=== PATIENT | male | born 1975 | race Caucasian/White ===

== ENCOUNTER 2016-11-13 16:12 | Emergency (ER) | payer BC ==
[~2016-11-13] VITALS: Ht 191.8 cm; Wt 100.4 kg
[~2016-11-13 16:12] MED LIST: IBUP-1450 PO; OMEP40CA PO; SNG10 PO; THIA100T11 PO
[2016-11-13 16:15] VITALS: TEMP 36.6; Ht 191.8 cm; Wt 100.4 kg
[2016-11-13 17:18] LABS: BASO % 0.2 %; BASO ABS # 0.02 K/uL (0-0.2); COMPLETE YES; EOS % 0.6 %; HEMATOCRIT 47.4 % (42-52); IG% 0.2 %; LYMPH % 17.5 %; LYMPH ABS # 1.53 K/uL (1.2-3.4); MEAN CORPUSCULAR HEMOGLOBIN 32.4 pg (25-34); MEAN CORPUSCULAR HGB CONC 35.7 g/dl (32-36); MEAN PLATELET VOLUME 9.6 fL (7.4-10.4); NEUT % 71.5 %; PLATELET COUNT 206 K/uL (130-400); RED BLOOD COUNT 5.21 M/uL (4.7-6.1); WHITE BLOOD COUNT 8.73 K/uL (4.8-10.8)
[2016-11-13 17:38] LABS: BUN/CREATININE RATIO 18.3 (10-20); CALCIUM 9.8 mg/dl (8.5-10.1); CREATININE 0.88 mg/dl (0.60-1.40); POTASSIUM 3.9 mmol/L (3.5-5.1)
[2016-11-13 17:49] LABS: THYROID STIMULATING HORMONE 0.722 uIu/ml (0.300-4.500)
[2016-11-13 17:53] LABS: ACETAMINOPHEN < 2 ug/ml (10-30)
[2016-11-13 18:06] LABS: URINE APPEARANCE TURBID (CLEAR); URINE COLOR ORANGE; URINE NITRITE POS (NEG); URINE SPECIFIC GRAVITY 1.037 (1.000-1.030); UROBILINOGEN NEG (NEG)
[2016-11-13 18:19] LABS: MANUAL MICROSCOPIC REQUIRED? NO; REVIEW REQ? NO; URINE BILIRUBIN NEG (NEG)
[2016-11-13 18:34] LABS: BENZODIAZEPINE, URINE NEG (NEG); COCAINE,URINE NEG (NEG); PHENCYCLIDINE, URINE NEG (NEG)
--- NOTE | 2016-11-14 01:02 | EMERGENCY ROOM VISIT NOTE ---
History Report prepared by Tahmina: Beverly Sage Under the Supervision of: Dr. Eugene Dominique D.O. First contact with patient: 16:33 Chief Complaint: MENTAL HEALTH EVALUATION Stated Complaint: MENTAL HEALTH EVAL History of Present Illness The patient is a 41 year old male who presents to the Emergency Room with complaints of worsening depression starting over 2 years [employer]. The patient states that he has been abusing alcohol and drugs over the last couple years in order to cope with his depression. The patient states that his father July 14 2015. The patient states that he recently has lost his job, house , and his dog. The patient states that he has recently been been on an alcoholic binge and has been drinking a lot, but does not know exactly how much he drinks daily. He states that some days he does not drink or he will drink "every once in a blue barlow," or go on a drinking binge. The patient states that he also uses marijuana and methamphetamine use. The patient states that he used Methamphetamines this morning followed by smoking a joint. The patient states that he knows that he cannot kill himself but states that he went into the [place] the other day during a drinking binge and contemplated it but states he does not want to . The patient denies any homicidal or suicidal ideation or any visual or auditory hallucinations. The patient states that he wants help dealing with the of his father because he has never really dealt with it in the past. The patient states that he did vomit earlier today but is not sure if it was due to his drug use. The patient denies any headaches or diarrhea. Source of History: patient Onset: 2 years TPA Position: other (global) Timing: worsening Associated Symptoms: + vomiting, No diarrhea, No headache Note: Patient denies any suicidal ideation, homicidal ideation, auditory or visual hallucinations. Review of Systems See HPI for pertinent positives & negatives. A total of 10 systems reviewed and were otherwise negative. Past Medical & Surgical Medical Problems: (1) Pain, dental Family History No significant family history Social History Smoking Status: Current Every Day Smoker Marital Status: single Occupation Status: employed Current/Historical Medications No Active Prescriptions or Reported Meds Allergies Coded Allergies: Hydrocodone (Unverified Allergy, Unknown, RASH, 11/13/16) Bupropion (Unverified Adverse Reaction, Unknown, PYSCHOTIC, 11/13/16) Physical Exam Vital Signs Date Time Temp Pulse Resp B/P Pulse Ox O2 Delivery O2 Flow Rate FiO2 11/13/16 23:15 95 18 167/89 97 Room Air 11/13/16 18:30 88 20 142/79 96 Room Air 11/13/16 16:15 36.6 112 18 177/99 95 Room Air Physical Exam GENERAL: Sitting up in bed, disheveled, alert, well appearing, well nourished, no distress, non-toxic EYE EXAM: normal conjunctiva OROPHARYNX: no exudate, no erythema, lips, buccal mucosa, and tongue normal and mucous membranes are moist NECK: supple, no nuchal rigidity, no adenopathy, non-tender LUNGS: Clear to auscultation. Normal chest wall mechanics HEART: no murmurs, S1 normal and S2 normal ABDOMEN: abdomen soft, non-tender, normo-active bowel sounds, no masses, no rebound or guarding. BACK: Back is symmetrical on inspection and there is no deformity, no midline tenderness, no CVA tenderness. SKIN: no rashes and no bruising UPPER EXTREMITIES: upper extremities are grossly normal. LOWER EXTREMITIES: No pitting edema. NEURO EXAM: Normal sensorium, cranial nerves II-XII intact, normal speech, no weakness of arms, no weakness of legs. PSYCH: denies suicidal, homicidal ideation. denies auditory and visual hallucinations. Admits to alcohol, methamphetamines and marijuana abuse. Medical Decision & Procedures Laboratory Results 11/13/16 17:10 Red Blood Count 5.21, Mean Corpuscular Volume 91.0, Mean Corpuscular Hemoglobin 32.4, Mean Corpuscular Hemoglobin Concent 35.7, Mean Platelet Volume 9.6, Neutrophils (%) (Auto) 71.5, Lymphocytes (%) (Auto) 17.5, Monocytes (%) (Auto) 10.0, Eosinophils (%) (Auto) 0.6, Basophils (%) (Auto) 0.2, Neutrophils # (Auto ) 6.24, Lymphocytes # (Auto) 1.53, Monocytes # (Auto) 0.87, Eosinophils # (Auto ) 0.05, Basophils # (Auto) 0.02 11/13/16 17:10 Test 11/13/16 16:55 11/13/16 17:00 11/13/16 17:10 Bedside Glucose 99 mg/dl (70-99) Urine Color ORANGE Urine Appearance TURBID (CLEAR) Urine pH 5.0 (4.5-7.5) Urine Specific [place] 1.037 (1.000-1.030) Urine Protein 2+ (NEG) Urine Glucose (UA) NEG (NEG) Urine Ketones 1+ (NEG) Urine Occult Blood NEG (NEG) Urine Nitrite POS (NEG) Urine Bilirubin NEG (NEG) Urine Urobilinogen NEG (NEG) Urine Leukocyte Esterase NEG (NEG) Urine WBC (Auto) 1-5 /hpf (0-5) Urine RBC (Auto) 0-4 /hpf (0-4) Urine Hyaline Casts (Auto) 5-10 /lpf (0-5) Urine Epithelial Cells (Auto) 5-10 /lpf (0-5) Urine Bacteria (Auto) NEG (NEG) Urine Opiates Screen NEG (NEG) Urine Methadone, Qualitative NEG (NEG) Urine Barbiturates NEG (NEG) Urine Phencyclidine (PCP) Level NEG (NEG) Ur Amphetamine/Methamphetamine POS (NEG) MDMA (Ecstasy) Screen POS (NEG) Urine Benzodiazepines Screen NEG (NEG) Urine Cocaine Metabolite NEG (NEG) Urine Marijuana (THC) POS (NEG) White Blood Count 8.73 K/uL (4.8-10.8) Red Blood Count 5.21 M/uL (4.7-6.1) Hemoglobin 16.9 g/dL (14.0-18.0) Hematocrit 47.4 % (42-52) Mean Corpuscular Volume 91.0 fL (80-100) Mean Corpuscular Hemoglobin 32.4 pg (25-34) Mean Corpuscular Hemoglobin Concent 35.7 g/dl (32-36) Platelet Count 206 K/uL (130-400) Mean Platelet Volume 9.6 fL (7.4-10.4) Neutrophils (%) (Auto) 71.5 % Lymphocytes (%) (Auto) 17.5 % Monocytes (%) (Auto) 10.0 % Eosinophils (%) (Auto) 0.6 % Basophils (%) (Auto) 0.2 % Neutrophils # (Auto) 6.24 K/uL (1.4-6.5) Lymphocytes # (Auto) 1.53 K/uL (1.2-3.4) Monocytes # (Auto) 0.87 K/uL (0.11-0.59) Eosinophils # (Auto) 0.05 K/uL (0-0.5) Basophils # (Auto) 0.02 K/uL (0-0.2) RDW Standard Deviation 43.4 fL (36.4-46.3) RDW Coefficient of Variation 13.1 % (11.5-14.5) Immature Granulocyte % (Auto) 0.2 % Immature Granulocyte # (Auto) 0.02 K/uL (0.00-0.02) Anion Gap 7.0 mmol/L (3-11) Est Creatinine Clear Calc Drug Dose 131.2 ml/min Estimated GFR () 121.9 Estimated GFR (Non- 105.2 BUN/Creatinine Ratio 18.3 (10-20) Calcium Level 9.8 mg/dl (8.5-10.1) Total Bilirubin 0.9 mg/dl (0.2-1) Direct Bilirubin 0.2 mg/dl (0-0.2) Aspartate Amino Transf (AST/SGOT) 33 U/L (15-37) Alanine Aminotransferase (ALT/SGPT) 49 U/L (12-78) Alkaline Phosphatase 75 U/L (45-117) Total Protein 9.0 gm/dl (6.4-8.2) Albumin 4.8 gm/dl (3.4-5.0) Thyroid Stimulating Hormone (TSH) 0.722 uIu/ml (0.300-4.500) Salicylates Level 2.7 mg/dl (2.8-20) Acetaminophen Level < 2 ug/ml (10-30) Ethyl Alcohol mg/dL < 3.0 mg/dl (0-3) Laboratory results per my review. ED Course ED COURSE: Vital signs were reviewed and showed normal The patients medical record was reviewed The above diagnostic studies were performed and reviewed. ED treatments and interventions as stated above. 1637: The patient was evaluated in room A5. A complete history and physical examination was performed. 2134: I reevaluated the patient and he was resting comfortably. He initially was refusing all dual diagnose inpatient care but he now is agreeable because he has not been admitted to [facility]. 2322: According to the casework specialist the patient has been accepted at [facility] for further inpatient psychiatric care and will be transferred for further treatment. 0041: Upon reevaluation, the patient is resting comfortably and sleeping waiting for transport to [facility] at 0115. 0115: The patient will now be transfer to [facility] for further psychiatric care. Based on the patients age, coexisting illnesses, exam and lab findings the decision to treat as an inpatient was made.The patient remained stable while under my care.The patient appeared well at the time of discharge. Medical Decision Differential diagnosis: Etiologies such as mood disorder, infection, hypoglycemia, electrolyte abnormalities, cardiac sources, intracerebral event, toxicologic, neurologic, as well as others were entertained. Patient is a 41-year-old male that presents the ER for severe depression along with alcohol abuse and methamphetamine abuse. He notes that he has nothing left to live for but denies any suicidal or homicidal ideations currently. He has been extremely depressed and has lost his job and is losing his house. He has been unable to care for himself. CBC along with BMP, LFTs, bilirubin, lipase and TSH were normal. Salicylates and acetaminophen were negative along with alcohol. Recommended to low treatment facilities the patient preferred to try to go to a primary psychiatric place. He was eventually accepted to [facility] and will be transported at 1:15. Patient rested comfortably in the ER until transport. Impression Primary Impression: Mood disorder Additional Impressions: Drug abuse Alcohol abuse Depression Scribe Attestation The scribe's documentation has been prepared under my direction and personally reviewed by me in its entirety. I confirm that the note above accurately reflects all work, treatment, procedures, and medical decision making performed by me. Departure Information Dispostion [facility] Acute Care ([facility]) Prescriptions No Active Prescriptions or Reported Meds Referrals No Doctor, Assigned (PCP) Patient Instructions My [facility] Problem Qualifiers
[2016-11-14 01:45] VITALS: BP 183/89; PULSE 70; O2SAT 100
== END 2016-11-14 01:45 | disposition short-term general hospital (02) ==
LOC: C.EDB 16:13 → C.EDA 11-14 01:45
DX: F32.9 Major depressive disorder, single episode, unspecified (principal); F39 Unspecified mood [affective] disorder; F10.10 Alcohol abuse, uncomplicated; F19.10 Other psychoactive substance abuse, uncomplicated; F17.200 Nicotine dependence, unspecified, uncomplicated; Z88.8 Allergy status to other drugs, medicaments and biological substances

== ENCOUNTER 2019-04-29 09:44 | Inpatient (IN) ==
--- OUTSIDE RECORDS SUMMARY | 2019-04-29 09:46 | External Medical Summary | Continuity of Care Document ---
:1975 Author Name Aurora Robert Address Unavailable Unavailable , Care Team Providers Name Role Phone Unavailable Unavailable Unavailable Froilan Robert Unavailable [email or web address] [email or web address], NO Unavailable Unavailable Emy Nevarez M.D. Unavailable [email or web address] Unavailable Unavailable Unavailable Problems Asthma (493.90) (J45.909) Obesity (278.00) (E66.9) Pre-syncope (780.2) (R55) Esophageal reflux (530.81) (K21.9) Psoriasis (696.1) (L40.9) Eczema (692.9) (L30.9) Plantar fasciitis (728.71) (M72.2) Alcohol dependence in remission (303.93) (F10.21) Hypercholesterolemia (272.0) (E78.00) Drug dependence, in remission (304.93) (F19.21) Pain, dental (525.9) (K08.89) Sleep apnea (780.57) (G47.30) Hypertension (401.9) (I10) Allergic rhinitis (477.9) (J30.9) Recurrent major depressive episodes, moderate (296.32) (F33. 1) Chronic lower back pain (724.2) (M54.5) Seeing A Dentist - Last Seen Acid reflux (530.81) (K21.9) Anxiety (300.00) (F41.9) Alcohol overdose (980.0) (T51.91XA) Lateral epicondylitis (726.32) (M77.10) Allergies and Adverse Reactions Vicodin TABS (Allergy) Reaction: Rash, H tanisha Wellbutrin TABS (Allergy) Reaction: Irri tability Medications Omeprazole 40 MG Oral Capsule Delayed Re lease; TAKE 1 CAPSULE BY MOUTH ONCE DAILY. Jakob Mcgovern Start: 13-Jul-2013 Quantity: 30 Refills: 1 Vitamin B-12 ER 1000 MCG Oral Tablet Ext ended Release; TAKE 1 TABLET DAILY DIRECTED. Jakob Mcgovern Start: 21-Dec-2016 Refills: 0 Thiamine HCl - 100 MG Oral Tablet; TAKE 1 TABLET DAILY. Jakob Ocampo Start: 21-Dec-2016 Refills: 0 hydrOXYzine Pamoate 50 MG Oral Capsule; take one every 6 hours prn Jakob Mcgovern Start: 21-Dec-2016 Quantity: 30 Refills: 0 QUEtiapine Fumarate ER 150 MG Oral Table t Extended Release 24 Hour; take one daily at bedtime, 10 p.m. Jakob Mcgovern Start: 21-Dec-2016 Quantity: 30 Refills: 0 FLUoxetine HCl - 20 MG Oral Capsule; take once daily a t 9 a.m. Jakob Mcgovern Start: 21-Dec-2016 Quantity: 30 Refills: 0 Gabapentin 300 MG Oral Capsule; take one TID at 8 a.m. , 2 p.m., and 8 p.m. Jakob Mcgovern Start: 21-Dec-2016 Quantity: 90 Refills: 0 Montelukast Sodium 10 MG Oral Tablet; TAKE 1 TABLET BY MOUTH ONCE DAILY. Jakob Mcgovern Start: 05-Dec-2012 Quantity: 30 Refills: 0 Procedures History of Abdominal Surgery Status: Com pleted Immunizations PPD On: Aug-2007 Tetanus On: Aug-2007 Influenza On: 2010 Influenza On: 08-Jul-2012 16:06 Lot #: [id number], [employer] Influenza On: 07-May-2014 14:50 Lot #: [id number], [employer] Family History Father Family history of Hypertension (V17.49) Status: Active Family history of Diabetes Mellitus (V18.0) Status: Active Family history of Pure Hypercholesterolemia Status: Active Family history of Reported Family History Of Heart Disease S tatus: Active Family history of Prostate Cancer (V16.42) Status: Active Family history of myocardial infarction (V17.3) (Z82.49) Sta tus: Active Brother Family history of Diabetes Mellitus (V18.0) Status: Active Family history of Pure Hypercholesterolemia Status: Active Family history of Unspecified Psychoactive Substance Abuse - Status: Active Continuous Social History - Smoking Status Former smoker Plan of Treatment Planned Observations Planned Goals not documented Results No Known Results Results not documented
[2019-04-29 10:16] LABS: Basophils # (auto) 0.02 K/uL (0-0.2); Basophils % (auto) 0.4 %; Eosinophils % (auto) 3.9 %; Hemoglobin 15.4 g/dL (14.0-18.0); Lymphocytes % (auto) 44.7 %; Mean Corpuscular Hemoglobin 32.2 pg (25-34); Mean Corpuscular Hgb Conc 36.7 g/dL (32-36); Mean Corpuscular Volume 87.7 fL (80-100); Mean Platelet Volume 9.7 fL (7.4-10.4); Monocytes # (auto) 0.38 K/uL (0.11-0.59); Monocytes % (auto) 7.4 %; Neutrophils # (auto) 2.24 K/uL (1.4-6.5); Neutrophils % (auto) 43.6 %; Platelet Count 212 K/uL (130-400); RDW Coefficient of Variation 12.4 % (11.5-14.5); RDW Standard Deviation 39.6 fL (36.4-46.3); Red Blood Count 4.79 M/uL (4.7-6.1); White Blood Count 5.14 K/uL (4.8-10.8)
[2019-04-29 10:33] LABS: BUN Creatinine Ratio 11.4 (10-20); Calcium 8.8 mg/dl (8.5-10.1); Creatinine Clr Calc Pharmacy 149.8 ml/min; Est GFR (African American) 120.8; Est GFR (Non-African American) 104.2; Potassium 3.7 mmol/L (3.5-5.1)
[2019-04-29 10:43] LABS: Albumin Globulin Ratio 1.1 (0.9-2); Bilirubin,Total 0.4 mg/dl (0.2-1); Globulin 3.5 gm/dl (2.5-4.0); Thyroid Stimulating Hormone 0.925 uIu/ml (0.300-4.500); Total Protein 7.5 gm/dl (6.4-8.2)
[2019-04-29 10:45] LABS: Acetaminophen < 2 ug/ml (10-30)
[2019-04-29 10:46] LABS: Salicylate 3.5 mg/dl (2.8-20)
[2019-04-29] MEDS: NICOTINE 14 MG/24 HR PATCH TD SCH (10:49)
[2019-04-29 10:59] LABS: Appearance Urine Clear (Clear); Bilirubin Urine Negative (Negative); Blood Urine Negative (Negative); Color Urine Dark Yellow; Glucose Urine UA Negative (Negative); Ketones Urine Negative (Negative); Leukocyte Esterase Urine Negative (Negative); Nitrite Urine Negative (Negative); Protein Urine Negative (Negative); Specific Gravity Urine 1.021 (1.000-1.030); Urobilinogen Urine Negative (Negative)
[2019-04-29 11:33] LABS: Amphetamines+Metham, Urine Neg (Neg); Barbiturates, Urine Neg (Neg); Benzodiazepine, Urine Neg (Neg); Cocaine, Urine Neg (Neg); MDMA (Ecstacy), Urine Pos (Neg); Methadone, Urine Neg (Neg); Opiate, Urine Neg (Neg); Phencyclidine, Urine Neg (Neg)
--- NOTE | 2019-04-29 12:28 | Emergency Department Note ---
Entered by Danna Tse acting as a scribe for History of Present Illness General Chief complaint: Mental Health Evaluation Stated complaint: MENTAL HEALTH Source: patient History of Present Illness Onset (ago): day(s) (the past couple of days) Location: head, upper extremity and lower extremity Pain Consistency: + other (worsening) Maximum Pain Intensity: 4 Quality: + other (mental health evaluation) Associated symptoms: + other (Positive SI (with plan to jump off bridge). Negative HI) The patient is a 43 year old male who presents to the ED for a mental health evaluation. He states he is severely depressed and is "tired of his life." He notes he has a hx of depression and takes trazodone and other medications he has forgotten because he "has not taken them in a while." Pt states he has been thinking about jumping off a bridge over the past couple of days because he does not know if "it is worth it or not" and these thoughts have become more frequent. The patient reports he has had multiple suicidal attempts in the past. He denies any HI. Pt smoked marijuana and last weekend, he did cocaine and meth. Home Medications Home Medications Medication Instructions Recorded Confirmed Type benztropine 0.5 mg PO BID 04/29/19 04/29/19 History divalproex 750 mg PO BID 04/29/19 04/29/19 History folic acid 1 mg PO DAILY 04/29/19 04/29/19 History meloxicam 7.5 mg PO BID 04/29/19 04/29/19 History omeprazole magnesium [Prilosec OTC] 20 mg PO DAILY 04/29/19 04/29/19 History thiamine HCl (vitamin B1) [Vitamin 625 mg PO DAILY 04/29/19 04/29/19 History B-1] trazodone 150 mg PO HS 04/29/19 04/29/19 History Allergies Allergy/AdvReac Type Severity Reaction Status Date / Time No Known Allergies Allergy Unverified 09/19/18 20:12 Past Med/Surg History Medical History Anxiety (Chronic) PTSD (post-traumatic stress disorder) (Chronic) Major depression (Chronic) Mood disorder (Chronic) Family history non-contributory Surgical History No pertinent past surgical history Family History Other Family history non-contributory Social History Preferred Language: Maori Feels Safe at Home: Yes Smoking Status: Current every day smoker Tobacco Type: cigarettes ; Review of Systems See HPI for pertinent positives & negatives. and A total of 10 systems reviewed and were otherwise negative Physical Exam Vital Signs Vital Signs - 24 hr 04/29/19 09:48 04/29/19 12:19 Temperature 36.6 C Temperature Source Oral Sepsis Recent Fever Within 48 Hours No Sepsis Action Taken by Nursing No Action Required Pulse Rate 88 Pulse Rate [Left Finger] 100 H Respiratory Rate 20 20 Respiratory Effort / Characteristics Non-Labored Spontaneous Non-Labored Spontaneous Respiratory Depth Normal Normal Blood Pressure 143/92 H Blood Pressure [Left Arm] 113/70 Blood Pressure Mean 109 Blood Pressure Mean [Left Arm] 84 Pulse Oximetry 97 96 Oxygen Delivery Method Room Air Room Air GENERAL: Sitting up in bed, wearing hospital blue scrubs. Disheveled, non-toxic EYE EXAM: normal conjunctiva, PERRL and EOM's grossly intact OROPHARYNX: no exudate, no erythema, lips, buccal mucosa, and tongue normal and mucous membranes are moist NECK: supple, no nuchal rigidity, no adenopathy, non-tender LUNGS: Clear to auscultation. Normal chest wall mechanics HEART: no murmurs, S1 normal and S2 normal ABDOMEN: abdomen soft, non-tender, normo-active bowel sounds, no masses, no rebound or guarding. BACK: Back is symmetrical on inspection and there is no deformity, no midline tenderness, no CVA tenderness. SKIN: no rashes and no bruising UPPER EXTREMITIES: upper extremities are grossly normal. LOWER EXTREMITIES: No pitting edema. NEURO EXAM: Normal sensorium, cranial nerves II-XII grossly intact, normal speech, no gross weakness of arms, no gross weakness of legs. PSYCH: Admits to with plan to jump off bridge. Denies HI, AH, and VH. Course ED COURSE: Vital signs were reviewed and showed hypertensive The patients medical record was reviewed The above diagnostic studies were performed and reviewed. ED treatments and interventions as stated above. 0956: The patient was evaluated in room A5. A complete history and physical examination was performed. 1330: Discussed the patient's case with [facility]. The patient will be evaluated for further management. 1335: Upon reevaluation, the patient is feeling slightly better. I discussed my findings with the patient and he understands and agrees with the treatment plan. Based on the patients age, coexisting illnesses, exam and lab findings the decision to treat as an inpatient was made. The patient remained stable while under my care. The patient will be evaluated for further management. Administered Medications Nicotine (Nicoderm Cq) 14 mg TD QAM KIMBERLEE Stop: 05/29/19 10:44 Last Admin: 04/29/19 10:49 Dose: 14 mg Documented by: [id number] Medical Decision Making Differential Diagnosis Differential diagnosis: Etiologies such as mood disorder, infection, hypoglycemia, electrolyte abnormalities, cardiac sources, intracerebral event, toxicologic, neurologic, as well as others were entertained. Medical Records Attestation: I reviewed the patient's medical records. Home Medications Current Medication List: was personally reviewed by me Laboratory Data Attestation: I reviewed the patient's lab results. Result diagrams: 04/29/19 09:58 04/29/19 09:58 Lab Results 04/29/19 04/29/19 04/29/19 Range/Units 09:58 09:58 09:58 WBC 5.14 (4.8-10.8) K/uL RBC 4.79 (4.7-6.1) M/uL Hgb 15.4 (14.0-18.0) g/dL Hct 42.0 (42-52) % MCV 87.7 (80-100) fL MCH 32.2 (25-34) pg MCHC 36.7 H (32-36) g/dL RDW Std Deviation 39.6 (36.4-46.3) fL RDW Coeff of Raysa 12.4 (11.5-14.5) % Plt Count 212 (130-400) K/uL MPV 9.7 (7.4-10.4) fL Immature Gran % (Auto) 0.0 % Neut % (Auto) 43.6 % Lymph % (Auto) 44.7 % [place] % (Auto) 7.4 % Eos % (Auto) 3.9 % Baso % (Auto) 0.4 % Immature Gran # (Auto) 0.00 (0.00-0.02) K/uL Neut # (Auto) 2.24 (1.4-6.5) K/uL Lymph # (Auto) 2.30 (1.2-3.4) K/uL [place] # (Auto) 0.38 (0.11-0.59) K/uL Eos # (Auto) 0.20 (0-0.5) K/uL Baso # (Auto) 0.02 (0-0.2) K/uL Sodium 136 (136-145) mmol/L Potassium 3.7 (3.5-5.1) mmol/L Chloride 105 (98-107) mmol/L Carbon Dioxide 27 (21-32) mmol/L Anion Gap 4.0 (3-11) BUN 10 (7-18) mg/dl Creatinine 0.87 (0.6-1.4) mg/dl Est Cr Clr Drug Dosing 149.8 ml/min Est GFR ( Amer) 120.8 Est GFR (Non-Af Amer) 104.2 BUN/Creatinine Ratio 11.4 (10-20) Glucose 101 H (70-99) mg/dl Calcium 8.8 (8.5-10.1) mg/dl Total Bilirubin 0.4 (0.2-1) mg/dl AST 29 (15-37) U/L ALT 49 (12-78) U/L Alkaline Phosphatase 55 (45-117) U/L Total Protein 7.5 (6.4-8.2) gm/dl Albumin 4.0 (3.4-5.0) gm/dl Globulin 3.5 (2.5-4.0) gm/dl Albumin/Globulin Ratio 1.1 (0.9-2) TSH 0.925 (0.300-4.500) uIu/ml Urine Color Urine Appearance (Clear) Urine pH (4.5-7.5) Ur Specific [place] (1.000-1.030) Urine Protein (Negative) Urine Glucose (UA) (Negative) Urine Ketones (Negative) Urine Blood (Negative) Urine Nitrite (Negative) Urine Bilirubin (Negative) Urine Urobilinogen (Negative) Ur Leukocyte Esterase (Negative) Nasal Screen MRSA (PCR) (Negative) Salicylates 3.5 (2.8-20) mg/dl Urine Opiates Screen (Neg) Ur Methadone, Qual (Neg) Acetaminophen < 2 L (10-30) ug/ml Urine Barbiturates (Neg) Ur Phencyclidine (PCP) (Neg) U Amphetamin/Meth Scrn (Neg) MDMA (Ecstasy) Screen (Neg) U Benzodiazepines Scrn (Neg) Ur Cocaine Metabolite (Neg) U Marijuana (THC) Screen (Neg) Ethyl Alcohol mg/dL (0-3) mg/dl 04/29/19 04/29/19 04/29/19 Range/Units 09:58 10:37 10:37 WBC (4.8-10.8) K/uL RBC (4.7-6.1) M/uL Hgb (14.0-18.0) g/dL Hct (42-52) % MCV (80-100) fL MCH (25-34) pg MCHC (32-36) g/dL RDW Std Deviation (36.4-46.3) fL RDW Coeff of Raysa (11.5-14.5) % Plt Count (130-400) K/uL MPV (7.4-10.4) fL Immature Gran % (Auto) % Neut % (Auto) % Lymph % (Auto) % [place] % (Auto) % Eos % (Auto) % Baso % (Auto) % Immature Gran # (Auto) (0.00-0.02) K/uL Neut # (Auto) (1.4-6.5) K/uL Lymph # (Auto) (1.2-3.4) K/uL [place] # (Auto) (0.11-0.59) K/uL Eos # (Auto) (0-0.5) K/uL Baso # (Auto) (0-0.2) K/uL Sodium (136-145) mmol/L Potassium (3.5-5.1) mmol/L Chloride (98-107) mmol/L Carbon Dioxide (21-32) mmol/L Anion Gap (3-11) BUN (7-18) mg/dl Creatinine (0.6-1.4) mg/dl Est Cr Clr Drug Dosing ml/min Est GFR ( Amer) Est GFR (Non-Af Amer) BUN/Creatinine Ratio (10-20) Glucose (70-99) mg/dl Calcium (8.5-10.1) mg/dl Total Bilirubin (0.2-1) mg/dl AST (15-37) U/L ALT (12-78) U/L Alkaline Phosphatase (45-117) U/L Total Protein (6.4-8.2) gm/dl Albumin (3.4-5.0) gm/dl Globulin (2.5-4.0) gm/dl Albumin/Globulin Ratio (0.9-2) TSH (0.300-4.500) uIu/ml Urine Color Dark Yellow Urine Appearance Clear (Clear) Urine pH 8.0 H (4.5-7.5) Ur Specific [place] 1.021 (1.000-1.030) Urine Protein Negative (Negative) Urine Glucose (UA) Negative (Negative) Urine Ketones Negative (Negative) Urine Blood Negative (Negative) Urine Nitrite Negative (Negative) Urine Bilirubin Negative (Negative) Urine Urobilinogen Negative (Negative) Ur Leukocyte Esterase Negative (Negative) Nasal Screen MRSA (PCR) (Negative) Salicylates (2.8-20) mg/dl Urine Opiates Screen Neg (Neg) Ur Methadone, Qual Neg (Neg) Acetaminophen (10-30) ug/ml Urine Barbiturates Neg (Neg) Ur Phencyclidine (PCP) Neg (Neg) U Amphetamin/Meth Scrn Neg (Neg) MDMA (Ecstasy) Screen Pos H (Neg) U Benzodiazepines Scrn Neg (Neg) Ur Cocaine Metabolite Neg (Neg) U Marijuana (THC) Screen Pos H (Neg) Ethyl Alcohol mg/dL < 3.0 (0-3) mg/dl 04/29/19 Range/Units 10:41 WBC (4.8-10.8) K/uL RBC (4.7-6.1) M/uL Hgb (14.0-18.0) g/dL Hct (42-52) % MCV (80-100) fL MCH (25-34) pg MCHC (32-36) g/dL RDW Std Deviation (36.4-46.3) fL RDW Coeff of Raysa (11.5-14.5) % Plt Count (130-400) K/uL MPV (7.4-10.4) fL Immature Gran % (Auto) % Neut % (Auto) % Lymph % (Auto) % [place] % (Auto) % Eos % (Auto) % Baso % (Auto) % Immature Gran # (Auto) (0.00-0.02) K/uL Neut # (Auto) (1.4-6.5) K/uL Lymph # (Auto) (1.2-3.4) K/uL [place] # (Auto) (0.11-0.59) K/uL Eos # (Auto) (0-0.5) K/uL Baso # (Auto) (0-0.2) K/uL Sodium (136-145) mmol/L Potassium (3.5-5.1) mmol/L Chloride (98-107) mmol/L Carbon Dioxide (21-32) mmol/L Anion Gap (3-11) BUN (7-18) mg/dl Creatinine (0.6-1.4) mg/dl Est Cr Clr Drug Dosing ml/min Est GFR ( Amer) Est GFR (Non-Af Amer) BUN/Creatinine Ratio (10-20) Glucose (70-99) mg/dl Calcium (8.5-10.1) mg/dl Total Bilirubin (0.2-1) mg/dl AST (15-37) U/L ALT (12-78) U/L Alkaline Phosphatase (45-117) U/L Total Protein (6.4-8.2) gm/dl Albumin (3.4-5.0) gm/dl Globulin (2.5-4.0) gm/dl Albumin/Globulin Ratio (0.9-2) TSH (0.300-4.500) uIu/ml Urine Color Urine Appearance (Clear) Urine pH (4.5-7.5) Ur Specific [place] (1.000-1.030) Urine Protein (Negative) Urine Glucose (UA) (Negative) Urine Ketones (Negative) Urine Blood (Negative) Urine Nitrite (Negative) Urine Bilirubin (Negative) Urine Urobilinogen (Negative) Ur Leukocyte Esterase (Negative) Nasal Screen MRSA (PCR) Negative (Negative) Salicylates (2.8-20) mg/dl Urine Opiates Screen (Neg) Ur Methadone, Qual (Neg) Acetaminophen (10-30) ug/ml Urine Barbiturates (Neg) Ur Phencyclidine (PCP) (Neg) U Amphetamin/Meth Scrn (Neg) MDMA (Ecstasy) Screen (Neg) U Benzodiazepines Scrn (Neg) Ur Cocaine Metabolite (Neg) U Marijuana (THC) Screen (Neg) Ethyl Alcohol mg/dL (0-3) mg/dl Blood Pressure Blood Pressure Findings: Elevated blood pressure Blood Pressure Disposition: further management by hospitalist LEXII Narrative Patient is a 43-year-old male who presents the ER with past medical history of depression and drug use for suicidal ideations. He admits to a plan to wanting to jump off of a bridge. Blood work was obtained and shows no significant leukocytosis or anemia. BMP along with LFTs bilirubin and TSH was unremarkable. UA was negative. MRSA requested by [facility] was negative. Tox was positive for MD LAMA and marijuana. Alcohol negative. He was updated bedside. Agreeable to come in and was admitted to [facility] on 201. Impression & Plan Suicidal ideation, Mood disorder Discharge Plan Visit Data *Final* Discharge Date/Time: 04/29/19 13:40 Chief Complaint: Mental Health Evaluation Stated Complaint: MENTAL HEALTH ED Provider: Eugene Dominique Discharge Problem: Suicidal ideation, Mood disorder Patient Disposition: Admitted As Inpatient Discharge Instructions Interventions: ED Discharge Assessment Last Done: 04/29/19 13:40 The scribe's documentation has been prepared under my direction and personally r eviewed by me in its entirety. I confirm that the note above accurately reflects all work, treatment, procedures, and medical decision making performed by me.
[2019-04-29] MEDS ORDERED: ACETAMINOPHEN 325 MG TAB PO PRN (13:16)
[2019-04-29] MEDS ORDERED: SODIUM CHLORIDE 0.65% NA SOLN 45 ML (OCEAN) PRN (13:16)
[2019-04-29] MEDS ORDERED: BISMUTH SUBSALICYLATE PER ML OMNICELL CHARGE PO PRN (13:16)
[2019-04-29] MEDS ORDERED: MAGNESIUM HYDROXIDE SUSP 30 ML UDC PO PRN (13:16)
[2019-04-29] MEDS ORDERED: ALUMINUM/MAGNESIUM SUSP 30 ML UDC PO PRN (13:16)
[2019-04-29] MEDS: MELOXICAM 7.5 MG TAB PO SCH (21:54)
[2019-04-29] MEDS: TRAZODONE HCL 50 MG TAB PO SCH (21:54)
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
[2019-04-29] MEDS: DIVALPROEX DELAY RELEASE 250 MG TABEC PO SCH (22:07)
[2019-04-30] MEDS ORDERED: INFLUENZA ADMINISTRATION CHARGE ONE (00:30)
[2019-04-30] MEDS ORDERED: INFLUENZA VIRUS QUAD VACCINE 0.5 ML SYR IM ONE (00:30)
--- NOTE | 2019-04-30 08:50 | Psychiatric Progress Note ---
Date of Service April 30, 2019 Impression / Recommendations (1) Suicidal ideation: 04/29 - Admitted to a locked inpatient behavioral health unit, on q15 minute safety checks - Encourage medication initiation/adjustments as indicated - Encourage participation in group and recreational therapies - Gather collateral information from outpatient providers - Suggest family meeting to involve outpatient supports in safety planning - Arrange appropriate aftercare 04/30 - Pt denies suicidality at this time (2) Mood disorder: 04/29 - Will treat preliminarily as mood disorder, NOS; differential includes: adjustment disorder with mixed anxiety and depression, dysthymic disorder, major depressive disorder, substance-induced mood disorder, and bipolar disorder - Will continue Depakote 750mg BID, as previously effective for patient's mood and reports of consistent anger and agitation - Request information from prior inpatient treatment facilities for additional psychiatric history - Coordinate aftercare and discharge plans - Encourage participation in group and recreational programming - Assist with development of healthy and effective coping strategies 04/30 - Continue Depakote 750mg BID, trazodone 150mg - Continue to encourage cooperation with discharge planning (3) Substance abuse: -Brief intervention was offered and accepted Intervention was greater than 5 min in length. Brief interventions include: 1. Assess Readiness to Quit, 2. Advise: Help Patient to Reduce or Abstain from Alcohol and abusable substances, 3. Agree: Set Specific, Feasible Goals, 4. Assist: Anticipate barriers, Problem-Solving Solutions. Social work to 5. Arrange: Referrals to appropriate treatment. Summary of intervention: The patient is in precontemplation stage with regards to transtheoretical model of change. The patient is advised to decrease alcohol consumption and substance abuse due to mild-altering effects and risk of interactions with prescription medications. The patient was advised of recommendations for abstinence from alcohol and other abusable substances and to attend substance abuse treatment at discharge, and will be provided with recovery materials to continue to education self on how to cope with their condition without drinking. 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 Pt was admitted on 04/29/19 13:16 on a 201 voluntary commitment for worsening mood and reported SI with plan to jump from a bridge. Information is gathered from hospital documentation and the patient himself, reliability is unknown. Chief Complaint "I'm alright, still a little foggy I'd say." Review of Systems Notes Constitutional: mildly fatigued this morning Cardiovascular: denied Respiratory: denied Gastrointestinal: denied Neurological: denied Psychiatric: denies symptoms other than stated above Total of at least 10 systems reviewed, pertinent positives as above and in HPI. Sleep Information Total Hours of Sleep: 10 Sleep Comments: pt appeared to sleep 3 hrs during evening shift. pt on q-15 minute checks Meal Information Percent Meal Consumed - Dinner: 80 Subjective Subjective Patient was seen & assessed and interval progress reviewed with nursing and social work. Staff reports the patient remains conditionally suicidal. He remained in his room for most of last evening, but has been interacting with peers this morning. Pt was seen today to assess progress since admission. Pt states he is feeling "alright, a little foggy." He denies SI to this provider at time of interaction, but admits that he is not sure he could remain safe out side of the hospital. When asked about his goal for today, he states "My goal is to figure out what I need to do for myself." Despite this, he states that when he was beginning discharge planning with social work, "I told them they're the experts with the resources. How am I supposed to know." Pt reminded that we would need his cooperation in order to develop a discharge plan. He states he needs a housing situation with structure in order to be most successful. Physical Exam Psychiatric Orientation: alert, oriented x 3 and cooperative Apperance: appropriately dressed, + disheveled and appeared stated age Eye Contact: good eye contact Motor Behavior: steady gait and station and no abnormal motor movements Speech: normal rate/rhythm/volume of speech Affect: + blunted affect (mildly so, not appearing overtly depressed or anxious) Mood: + depressed mood ("Ok, still a little foggy") Thought Process: goal directed thought process and + concrete thought process Thought Content: reality based without delusions, + hopelessness and + worthlessness Suicidal Thoughts: denies suicidal thoughts (at time of this interview; SI remains largely conditional) Homicidal Thoughts: denies homicidal thoughts Hallucinations: no auditory hallucinations and no visual hallucinations Cognition: attention grossly intact and language grossly intact Insight: + poor insight Judgement: + poor judgement Vital Signs (Past 24 Hours) Last Vital Signs Temp 36.6 C 04/30/19 07:06 Pulse 92 H 04/30/19 07:07 Resp 18 04/30/19 07:06 BP 105/63 04/30/19 07:07 Pulse Ox 96 04/29/19 12:19 Results & Data Laboratory Results Laboratory Results - last 24 hr 04/29/19 04/29/19 04/29/19 09:58 09:58 09:58 WBC 5.14 RBC 4.79 Hgb 15.4 Hct 42.0 MCV 87.7 MCH 32.2 MCHC 36.7 H RDW Std Deviation 39.6 RDW Coeff of Raysa 12.4 Plt Count 212 MPV 9.7 Immature Gran % (Auto) 0.0 Neut % (Auto) 43.6 Lymph % (Auto) 44.7 Dougherty % (Auto) 7.4 Eos % (Auto) 3.9 Baso % (Auto) 0.4 Immature Gran # (Auto) 0.00 Neut # (Auto) 2.24 Lymph # (Auto) 2.30 Dougherty # (Auto) 0.38 Eos # (Auto) 0.20 Baso # (Auto) 0.02 Sodium 136 Potassium 3.7 Chloride 105 Carbon Dioxide 27 Anion Gap 4.0 BUN 10 Creatinine 0.87 Est Cr Clr Drug Dosing 149.8 Est GFR ( Amer) 120.8 Est GFR (Non-Af Amer) 104.2 BUN/Creatinine Ratio 11.4 Glucose 101 H Calcium 8.8 Total Bilirubin 0.4 AST 29 ALT 49 Alkaline Phosphatase 55 Total Protein 7.5 Albumin 4.0 Globulin 3.5 Albumin/Globulin Ratio 1.1 TSH 0.925 Urine Color Urine Appearance Urine pH Ur Specific [place] Urine Protein Urine Glucose (UA) Urine Ketones Urine Blood Urine Nitrite Urine Bilirubin Urine Urobilinogen Ur Leukocyte Esterase Nasal Screen MRSA (PCR) Salicylates 3.5 Urine Opiates Screen Ur Methadone, Qual Acetaminophen < 2 L Urine Barbiturates Ur Phencyclidine (PCP) U Amphetamin/Meth Scrn MDMA (Ecstasy) Screen U MDMA (Ecstasy), Quant U Benzodiazepines Scrn Ur Cocaine Metabolite U Marijuana (THC) Screen U Marijuana THC Carboxy Ethyl Alcohol mg/dL 04/29/19 04/29/19 04/29/19 09:58 10:37 10:37 WBC RBC Hgb Hct MCV MCH MCHC RDW Std Deviation RDW Coeff of Raysa Plt Count MPV Immature Gran % (Auto) Neut % (Auto) Lymph % (Auto) Dougherty % (Auto) Eos % (Auto) Baso % (Auto) Immature Gran # (Auto) Neut # (Auto) Lymph # (Auto) Dougherty # (Auto) Eos # (Auto) Baso # (Auto) Sodium Potassium Chloride Carbon Dioxide Anion Gap BUN Creatinine Est Cr Clr Drug Dosing Est GFR ( Amer) Est GFR (Non-Af Amer) BUN/Creatinine Ratio Glucose Calcium Total Bilirubin AST ALT Alkaline Phosphatase Total Protein Albumin Globulin Albumin/Globulin Ratio TSH Urine Color Dark Yellow Urine Appearance Clear Urine pH 8.0 H Ur Specific [place] 1.021 Urine Protein Negative Urine Glucose (UA) Negative Urine Ketones Negative Urine Blood Negative Urine Nitrite Negative Urine Bilirubin Negative Urine Urobilinogen Negative Ur Leukocyte Esterase Negative Nasal Screen MRSA (PCR) Salicylates Urine Opiates Screen Neg Ur Methadone, Qual Neg Acetaminophen Urine Barbiturates Neg Ur Phencyclidine (PCP) Neg U Amphetamin/Meth Scrn Neg MDMA (Ecstasy) Screen Pos H U MDMA (Ecstasy), Quant U Benzodiazepines Scrn Neg Ur Cocaine Metabolite Neg U Marijuana (THC) Screen Pos H U Marijuana THC Carboxy Ethyl Alcohol mg/dL < 3.0 04/29/19 04/29/19 04/29/19 10:37 10:37 10:41 WBC RBC Hgb Hct MCV MCH MCHC RDW Std Deviation RDW Coeff of Raysa Plt Count MPV Immature Gran % (Auto) Neut % (Auto) Lymph % (Auto) Dougherty % (Auto) Eos % (Auto) Baso % (Auto) Immature Gran # (Auto) Neut # (Auto) Lymph # (Auto) Dougherty # (Auto) Eos # (Auto) Baso # (Auto) Sodium Potassium Chloride Carbon Dioxide Anion Gap BUN Creatinine Est Cr Clr Drug Dosing Est GFR ( Amer) Est GFR (Non-Af Amer) BUN/Creatinine Ratio Glucose Calcium Total Bilirubin AST ALT Alkaline Phosphatase Total Protein Albumin Globulin Albumin/Globulin Ratio TSH Urine Color Urine Appearance Urine pH Ur Specific [place] Urine Protein Urine Glucose (UA) Urine Ketones Urine Blood Urine Nitrite Urine Bilirubin Urine Urobilinogen Ur Leukocyte Esterase Nasal Screen MRSA (PCR) Negative Salicylates Urine Opiates Screen Ur Methadone, Qual Acetaminophen Urine Barbiturates Ur Phencyclidine (PCP) U Amphetamin/Meth Scrn MDMA (Ecstasy) Screen U MDMA (Ecstasy), Quant Pending U Benzodiazepines Scrn Ur Cocaine Metabolite U Marijuana (THC) Screen U Marijuana THC Carboxy Pending Ethyl Alcohol mg/dL Current Inpatient Medications Current Inpatient Medications: Current Inpatient Medications Acetaminophen (Tylenol) 650 mg PO Q4H PRN PRN Reason: Headache or Minor Fever Stop: 05/29/19 13:15 Al Hydrox/Mg Hydrox/Simethicone (Maalox) 30 ml PO Q4H PRN PRN Reason: GI Upset Stop: 05/29/19 13:15 Bismuth Subsalicylate (Kaopectate) 15 ml PO PRN PRN PRN Reason: Loose Stool Stop: 05/29/19 13:15 Divalproex Sodium (Depakote Delay Release) 750 mg PO BID [facility] Stop: 05/29/19 20:59 Last Admin: 04/29/19 22:07 Dose: 750 mg Documented by: Folic Acid (Folvite) 1 mg PO DAILY [facility] Stop: 05/30/19 08:59 Hydroxyzine HCl (Vistaril) 25 mg PO Q4H PRN PRN Reason: Anxiety Stop: 05/29/19 13:15 Hydroxyzine HCl (Vistaril) 50 mg PO HSZ PRN PRN Reason: Insomnia Stop: 05/29/19 13:15 Magnesium Hydroxide (Milk Of Magnesia) 30 ml PO DAILY PRN PRN Reason: Constipation Stop: 05/29/19 13:15 Meloxicam (Mobic) 7.5 mg PO BID [facility] Stop: 05/29/19 20:59 Last Admin: 04/29/19 21:54 Dose: 7.5 mg Documented by: Miscellaneous (Remove Nicoderm Patch) 1 ea N/A HS [facility] Stop: 05/29/19 20:59 Last Admin: 04/29/19 22:53 Dose: Not Given Documented by: Nicotine (Nicoderm Cq) 14 mg TD QAM [facility] Stop: 05/29/19 10:44 Last Admin: 04/29/19 10:49 Dose: 14 mg Documented by: Pantoprazole Sodium (Protonix) 40 mg PO DAILY [facility] Stop: 05/30/19 08:59 Sodium Chloride (Chaves Nasal) 1 - 2 sprays NA PRN PRN PRN Reason: Nasal Dryness/Congestion Stop: 05/29/19 13:15 Thiamine HCl (Vitamin B-1) 625 mg PO DAILY [facility] Stop: 05/30/19 08:59 Trazodone HCl (Desyrel) 150 mg PO HS [facility] Stop: 05/29/19 21:59 Last Admin: 04/29/19 21:54 Dose: 150 mg Documented by: CPT Code CPT Code 27319
[2019-04-30] MEDS: DIVALPROEX DELAY RELEASE 250 MG TABEC PO SCH ×2 (10:17→21:02)
[2019-04-30] MEDS: PANTOprazole 40 MG TAB PO SCH (10:18)
[2019-04-30] MEDS: FOLIC ACID 1 MG TAB PO SCH (10:18)
[2019-04-30] MEDS: MELOXICAM 7.5 MG TAB PO SCH ×2 (10:18→21:02)
[2019-04-30] MEDS: THIAMINE HCL 100 MG TAB PO SCH (10:19)
[2019-04-30] MEDS: NICOTINE 14 MG/24 HR PATCH TD SCH (10:19)
[2019-04-30] MEDS: TRAZODONE HCL 50 MG TAB PO SCH (21:03)
[2019-05-01] MEDS: PANTOprazole 40 MG TAB PO SCH (08:31)
[2019-05-01] MEDS: DIVALPROEX DELAY RELEASE 250 MG TABEC PO SCH ×2 (08:31→21:11)
[2019-05-01] MEDS: NICOTINE 14 MG/24 HR PATCH TD SCH (08:32)
[2019-05-01] MEDS: FOLIC ACID 1 MG TAB PO SCH (08:32)
[2019-05-01] MEDS: THIAMINE HCL 100 MG TAB PO SCH (08:32)
[2019-05-01] MEDS: MELOXICAM 7.5 MG TAB PO SCH ×2 (08:32→21:11)
--- NOTE | 2019-05-01 09:12 | Psychiatric Progress Note ---
Date of Service May 01, 2019 Impression / Recommendations (1) Suicidal ideation: 04/29 - Admitted to a locked inpatient behavioral health unit, on q15 minute safety checks - Encourage medication initiation/adjustments as indicated - Encourage participation in group and recreational therapies - Gather collateral information from outpatient providers - Suggest family meeting to involve outpatient supports in safety planning - Arrange appropriate aftercare 04/30 - Pt denies suicidality at this time 05/01 - Pt continues to deny suicidality; based on presentation, it is likely his suicidality is conditional (2) Mood disorder: 04/29 - Will treat preliminarily as mood disorder, NOS; differential includes: adjustment disorder with mixed anxiety and depression, dysthymic disorder, major depressive disorder, substance-induced mood disorder, and bipolar disorder - Will continue Depakote 750mg BID, as previously effective for patient's mood and reports of consistent anger and agitation - Request information from prior inpatient treatment facilities for additional psychiatric history - Coordinate aftercare and discharge plans - Encourage participation in group and recreational programming - Assist with development of healthy and effective coping strategies 04/30 - 05/01 - Continue Depakote 750mg BID, trazodone 150mg - Continue to encourage cooperation with discharge planning (3) Substance abuse: -Brief intervention was offered and accepted Intervention was greater than 5 min in length. Brief interventions include: 1. Assess Readiness to Quit, 2. Advise: Help Patient to Reduce or Abstain from Alcohol and abusable substances, 3. Agree: Set Specific, Feasible Goals, 4. Assist: Anticipate barriers, Problem-Solving Solutions. Social work to 5. Arrange: Referrals to appropriate treatment. Summary of intervention: The patient is in precontemplation stage with regards to transtheoretical model of change. The patient is advised to decrease alcohol consumption and substance abuse due to mild-altering effects and risk of interactions with prescription medications. The patient was advised of recommendations for abstinence from alcohol and other abusable substances and to attend substance abuse treatment at discharge, and will be provided with recovery materials to continue to education self on how to cope with their condition without drinking. 05/01 - Continue to discuss substance abuse treatment options, consider inpatient D&A rehab (4) Malingerin/14 - Based on situations related to presentation, demands for specific services, conditional suicidality related to needs not being met, and limited demonstration of initiative to change his situation - a malingering diagnosis will be added to the patient's chart - Pt has revealed a significant history of utilizing treatment programs to have his needs met, including correctional facilities, assisted houses, inpatient rehabs, and inpatient psychiatric units - Pt has been informed by multiple staff what services are realistic to expect to receive after an acute psychiatric admission - Continue to maintain clear boundaries with the patient regarding available services Risk Factors Assessment Male: Yes : Yes Do You Have Access To A Gun?: No Health Problems: No Mental Health Diagnoses: Yes Substance Use Disorders: Yes Previous Attempt: No Previous Psychiatric Hospitalization: Yes Hopelessness: Yes Smoker: Yes Protective Factors Assessment Yazidi Beliefs: No : No Responsible for Young Children: No 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 Pt was admitted on 04/29/19 13:16 on a 201 voluntary commitment for worsening mood and reported SI with plan to jump from a bridge. Information is gathered from hospital documentation and the patient himself, reliability is unknown. Chief Complaint "Alright, I'm still waking up. I'm pretty closed minded when when I wake up." Review of Systems Notes Constitutional: denied Cardiovascular: denied Respiratory: denied Gastrointestinal: denied Neurological: denied Psychiatric: denies symptoms other than stated above Total of at least 10 systems reviewed, pertinent positives as above and in HPI. Sleep Information Total Hours of Sleep: 7.75 Sleep Comments: pt on q-15 minute checks Meal Information Percent Meal Consumed - Breakfast: 100 Percent Meal Consumed - Lunch: 100 Percent Meal Consumed - Dinner: 100 Subjective Subjective Patient was seen & assessed and interval progress reviewed with treatment team. Staff report the patient has been cooperative and attends group, but is not demonstrating motivation to work on any significant modifications to his life's trajectory. Pt was seen today to assess progress since admission. Pt states that he is feeling "alright, pretty good" today. He states he was frustrated over the weekend, as his reported perception was that "you guys are just trying to kick me out." Pt states that he found it very overwhelming to be discussing aftercare/discharge plans this early in his stay. Pt was informed that discharge planning can take considerable time and management, and we begin discussing each patient's wishes early so that we are able to explore available opportunities. Pt states, "I don't know why I can't get something here, my license says I'm from here. I heard one hossein is going to [facility], send me with him." Pt was informed again that his insurance, not his ID address, dictates where he is most likely to be eligible for services. Pt states, "well, I feel like I'm throwing all this stuff out there. If nothing else, you can help me get to [place]." Pt admits he has family in [place], but states he has not had contact with them for years. Pt denies suicidality today. He continues to report he is not ready for discharge as he does not have housing - continuing to verbalize a desire for "independent living." Pt denies other acute needs or concerns today. This provider attempted to set clear expectations for what we are able to accomplish in an acute inpatient setting, and he was requested to continue to work with our social work team to make discharge arrangements. Physical Exam Psychiatric Orientation: alert, oriented x 3 and cooperative (superficially) Apperance: appropriately dressed, + disheveled and appeared stated age Eye Contact: good eye contact Motor Behavior: steady gait and station and no abnormal motor movements Speech: normal rate/rhythm/volume of speech Affect: + blunted affect (not appearing overtly depressed) Mood: no depressed mood ("I'm alright, pretty good") Thought Process: goal directed thought process, clear/coherent thought process and + concrete thought process Thought Content: + cognitive distortions; no hopelessness Suicidal Thoughts: denies suicidal thoughts Homicidal Thoughts: denies homicidal thoughts Hallucinations: no auditory hallucinations and no visual hallucinations Cognition: attention grossly intact and language grossly intact Insight: + poor insight (historically; not likely a result of underlying psychiatric disorder) Judgement: + poor judgement (historically; not likely a result of underlying psychiatric disorder) Vital Signs (Past 24 Hours) Last Vital Signs Temp 36.6 C 05/01/19 06:57 Pulse 86 05/01/19 06:58 Resp 20 05/01/19 06:57 BP 114/76 05/01/19 06:58 Pulse Ox 96 04/29/19 12:19 Results & Data Current Inpatient Medications Current Inpatient Medications: Current Inpatient Medications Acetaminophen (Tylenol) 650 mg PO Q4H PRN PRN Reason: Headache or Minor Fever Stop: 05/29/19 13:15 Al Hydrox/Mg Hydrox/Simethicone (Maalox) 30 ml PO Q4H PRN PRN Reason: GI Upset Stop: 05/29/19 13:15 Bismuth Subsalicylate (Kaopectate) 15 ml PO PRN PRN PRN Reason: Loose Stool Stop: 05/29/19 13:15 Divalproex Sodium (Depakote Delay Release) 750 mg PO BID [facility] Stop: 05/29/19 20:59 Last Admin: 05/01/19 08:31 Dose: 750 mg Documented by: Folic Acid (Folvite) 1 mg PO DAILY [facility] Stop: 05/30/19 08:59 Last Admin: 05/01/19 08:32 Dose: 1 mg Documented by: Hydroxyzine HCl (Vistaril) 25 mg PO Q4H PRN PRN Reason: Anxiety Stop: 05/29/19 13:15 Last Admin: 04/30/19 17:59 Dose: 25 mg Documented by: Hydroxyzine HCl (Vistaril) 50 mg PO HSZ PRN PRN Reason: Insomnia Stop: 05/29/19 13:15 Magnesium Hydroxide (Milk Of Magnesia) 30 ml PO DAILY PRN PRN Reason: Constipation Stop: 05/29/19 13:15 Meloxicam (Mobic) 7.5 mg PO BID [facility] Stop: 05/29/19 20:59 Last Admin: 05/01/19 08:32 Dose: 7.5 mg Documented by: Miscellaneous (Remove Nicoderm Patch) 1 ea N/A HS [facility] Stop: 05/29/19 20:59 Last Admin: 04/30/19 21:03 Dose: Not Given Documented by: Nicotine (Nicoderm Cq) 14 mg TD QAM [facility] Stop: 05/29/19 10:44 Last Admin: 05/01/19 08:32 Dose: 14 mg Documented by: Pantoprazole Sodium (Protonix) 40 mg PO DAILY [facility] Stop: 05/30/19 08:59 Last Admin: 05/01/19 08:31 Dose: 40 mg Documented by: Sodium Chloride ([place] Nasal) 1 - 2 sprays NA PRN PRN PRN Reason: Nasal Dryness/Congestion Stop: 05/29/19 13:15 Thiamine HCl (Vitamin B-1) 625 mg PO DAILY [facility] Stop: 05/30/19 08:59 Last Admin: 05/01/19 08:32 Dose: 625 mg Documented by: Trazodone HCl (Desyrel) 150 mg PO HS [facility] Stop: 05/29/19 21:59 Last Admin: 04/30/19 21:03 Dose: 150 mg Documented by: CPT Code CPT Code 38541
[2019-05-01] MEDS: TRAZODONE HCL 50 MG TAB PO SCH (21:11)
[2019-05-02] MEDS: THIAMINE HCL 100 MG TAB PO SCH (08:59)
[2019-05-02] MEDS: PANTOprazole 40 MG TAB PO SCH (08:59)
[2019-05-02] MEDS: DIVALPROEX DELAY RELEASE 250 MG TABEC PO SCH (09:00)
[2019-05-02] MEDS: FOLIC ACID 1 MG TAB PO SCH (09:00)
[2019-05-02] MEDS: MELOXICAM 7.5 MG TAB PO SCH (09:00)
[2019-05-02] MEDS: NICOTINE 14 MG/24 HR PATCH TD SCH (09:02)
--- NOTE | 2019-05-02 11:25 | Discharge Summary ---
Date of Service May 02, 2019 History of Present Illness Jus Bran is a 43-year-old male admitted voluntarily for inpatient psychiatric treatment. Pt is reportedly homeless and presented to the ED due to worsening depression and 3-4 days of suicidality. Pt reports a plan to jump from a bridge. It is reported that the patient had been living out of the area with friends, but was kicked out of their home over a week ago. He returned to [place], but states he does not have supports and desires independent living. He states that he had been to [facility] in 09/2018, and was released from jail in 12/2018. Pt states that he has been using cocaine, methamphetamine, and K2 recently. Pt is cooperative with psychiatric evaluation, and reports that his homelessness is a significant stressor for him. He states, "it just puts you into a mood of, you might as well end your life." Pt reports he had been feeling this way for the past 3-4 days, which is what prompted his ED presentation. Pt admits that now that he is on the unit, is suicidal ideation has drastically been reduced. Pt states, "I feel worthless, this isn't me. I'm normally a positive person." Pt reports his son is a protective factor, saying "I didn't do it because of him." Pt does report "I'm not happy, my mood is on the lower end." When asked about noticeable changes in his behavior during periods of depression, the patient states, "that's when the drug thoughts pop up in my mind. I isolate." He reports difficulty falling and staying asleep and low energy. He denies significant changes in his appetite. Pt reports a diagnosis of bipolar disorder, but does not verbalize prior history of significantly elevated mood, drastic changes in sleep patterns, increased goal directed behavior, flight of ideas, or increased recklessness that would be consistent with a bipolar presentation. Pt also reports a diagnosis of PTSD from a history of trauma, but when asked about symptoms, he only states "I jump when someone startles me, my heart races." Pt's goals for this admission are reportedly to have help "managing my life." He reports desire for assistance with "managing money and housing." Pt states that his current medication regimen was started while at [facility]; but his reported medication list is not consistent with what was provided in the ED. Pt does admit to taking Depakote, and finds it helpful for reported anger and agitation. Trazodone is also reported to be effective for sleep. Pt is willing to sign releases to allow us to gather additional collateral information. Pt denies HI, SIB, A/V hallucinations, paranoia, francisco javier/hypomania, other symptoms more suggestive of a bipolar presentation, OCD, eating disorder, and other specific psychiatric symptoms. Physical Exam Psychiatric Orientation: alert, oriented x 3 and cooperative Apperance: appropriately dressed, + disheveled (not yet showered for the day, hair is unkempt, malodorous) and appeared stated age Eye Contact: good eye contact Motor Behavior: steady gait and station and no abnormal motor movements Speech: normal rate/rhythm/volume of speech Affect: euthymic affect (appropriate brightening, smiling, laughing) and mood congruent with affect Mood: no depressed mood ("I'm feeling really good. I got to talk to my son.") Thought Process: goal directed thought process, clear/coherent thought process and thought association intact Thought Content: reality based without delusions; no hopelessness and no worthlessness Suicidal Thoughts: denies suicidal thoughts, denies suicidal plan and denies suicidal intent Homicidal Thoughts: denies homicidal thoughts Hallucinations: no auditory hallucinations and no visual hallucinations Cognition: remote memory grossly intact, attention grossly intact and language grossly intact Insight: + fair insight Judgement: + fair judgement Vital Signs (Past 24 Hours) Last Vital Signs Temp 36.6 C 05/02/19 06:55 Pulse 71 05/02/19 06:56 Resp 18 05/02/19 06:55 BP 108/75 05/02/19 06:56 Pulse Ox 96 04/29/19 12:19 Principal Diagnosis - Mood disorder, NOS (differential includes substance-induced mood disorder, MDD, bipolar disorder) - Historical diagnoses of Generalized anxiety disorder and PTSD - Malingering - Substance abuse Psychiatric Data 43-year-old male admitted voluntarily for inpatient psychiatric treatment after presenting to the ED with worsening depression for the past 3-4 days and thoughts to end his life by jumping off a bridge. Pt denied intent to act, but reported feeling hopeless due to his present circumstances. Pt admits that he has been homeless for some time, having traveled rather frequently to different areas - often being admitted to various inpatient psychiatric units or inpatient rehab facilities. He was also incarcerated, having been released in 12/2018. Pt admitted to recent substance use prior to admission. Pt presented on various psychiatric medications, agreeing to continuation of Depakote ER 750mg BID and trazodone 150mg qHS. He is aware that he will need to have his Depakote level checked on 05/04/19 and was provided with a lab order. He admitted to tolerating the medications and was agreeable to continuing them. Over the course of the patient's admission, he worked with staff to determine alternative housing options. He was agreeable to exploring homeless prison options. He declined offer for inpatient D&A referrals to address his substance abuse. He attended group programming and participated appropriately. He was interactive with and supportive of peers on the unit. Pt admitted to significant improvement in mood over the course of his admission. Suicidality, which was likely situationally related to lack of housing, reportedly resolved shortly after admission to the unit. Pt was future oriented in conversation and was agreeable with discharge after he was provided with a referral to [facility] for continued outpatient management. Pt will have an intake on 05/04/19 which will allow him to be evaluated for PCP, psychiatric, and therapeutic services. Based on review of patient's case and their current presentation, risk of harm to self or others is no longer perceived to be acute. Management of symptoms on an outpatient basis seems the most appropriate and least restrictive setting. Pt seems appropriate for discharge with recommendation for consistent follow-up with [facility] for continued psychiatric and medical management. Pt verbalized understanding of discharge plan reviewed and is agreeable with plan to be discharged today. Day of Discharge Assessment Patient's case was reviewed and discussed with nursing and social work. Staff report the patient has been referred to [facility] for medication management and has an appointment scheduled on 05/04/19. He also was provided with information for [facility], should he desire to reach out to them for temporary prison. Pt has continued to deny SI since being admitted to the unit. He has remained superficially pleasant and rated his mood an 8/10 last evening, reportedly feeling "really great." Pt was seen today to assess readiness for discharge. Pt states that he is doing well today, sharing with this provider that he was able to speak with his son last evening - "that made me so happy!" Pt reports appreciation for the services were have been able to refer him to. Pt is aware that he will have an appointment at [facility] to continue his psychiatric medications and follow him for other medical needs. Pt was given information for various homeless shelters, and reports a plan to call [facility] after discharge to determine their availability. Pt denies any other discharge needs that he feels he requires at this time. Pt reports he is agreeable with discharge today, reporting a plan to shower and eat lunch and then get a bus. Pt was asked to complete a safety plan prior to discharge. He states, "oh I have one, it's all up here [pointing to head], that's why I'm here. I was feeling bad so I used my safety plan and came to the hospital." Pt did agree to completing a written plan before leaving. Pt reports significant improvement in mood and denies SI today. He reports feeling safe to leave the hospital today. He is future oriented in conversation and appears more hopeful. He denies other needs or concerns at this time. Constitutional: denied Cardiovascular: denied Respiratory: denied Gastrointestinal: denied Neurological: denied Psychiatric: denies symptoms other than stated above Total of at least 10 systems reviewed, pertinent positives as above and in HPI. Transition of Care Transition Of Care Record: was reviewed with the patient Advance Directives Advance Directives Information Provided: Yes Advance Directives: No Mental Health Advance Directive: No Advance Directives on File: No Living Will: No Power of Desktop Support Specialist: No Advance Directives Reason:: Declines as Mental Health Visit. Risk Factors Assessment Presenting risk factors reviewed on discharge. Precipitating stressors mitigated by: admission for inpatient psychiatric observation and treatment, appropriate adjustments to medications to target symptoms, attendance of therapeutic treatment groups, development of healthy and effective coping strategies, completion of a safety plan, confirmation of guns and weapons being secured, discussion regarding substance abuse and effects on mental health diagnoses, and education on diagnoses. Pt has demonstrated improvement in condition with regard to improvement in mood, resolution of SI, and housing resources provided. Pt referred for outpatient medication management. At this time, patient is requesting discharge and is no longer considered to be at acute risk of harm to himself or others. Pt will be discharged with recommendation for ongoing outpatient psychiatric treatment. Pt is at increased risk of harm to self or others when compared to the general population and there are several risk factors which are not likely to be mitigated in an inpatient treatment setting. He is homeless and struggles with substance abuse - declined recommendation for inpatient D&A rehab to address his substance use. Acute risk has been mitigated psychiatric stay in that the patient is denying SI, reporting improvement in mood, and is pleased with housing resources and aftercare referrals that have been made - additional risk factors are not likely amenable to continued inpatient psychiatric treatment. Male: Yes : Yes Do You Have Access To A Gun?: No Health Problems: No Mental Health Diagnoses: Yes Substance Use Disorders: Yes Previous Attempt: No Previous Psychiatric Hospitalization: Yes Hopelessness: Yes Smoker: Yes Protective Factors Assessment Mandaeism Beliefs: No : No Responsible for Young Children: No Employed: No (Disability for mental health and "slow learner") Supportive Family: No Good Rapport with Provider: No Tobacco Cessation at Discharge Tobacco Cessation Medication Prescribed at Discharge: Offered & Pt Refused Total Time Total Time Spent: Greater Than 30 Minutes Total Time Includes: Examination of the patient, Discharge Planning, Medication Reconciliation and Communication with other providers Discharge Data Lab Results 04/29/19 04/29/19 04/29/19 09:58 09:58 09:58 WBC 5.14 RBC 4.79 Hgb 15.4 Hct 42.0 MCV 87.7 MCH 32.2 MCHC 36.7 H RDW Std Deviation 39.6 RDW Coeff of Raysa 12.4 Plt Count 212 MPV 9.7 Immature Gran % (Auto) 0.0 Neut % (Auto) 43.6 Lymph % (Auto) 44.7 [place] % (Auto) 7.4 Eos % (Auto) 3.9 Baso % (Auto) 0.4 Immature Gran # (Auto) 0.00 Neut # (Auto) 2.24 Lymph # (Auto) 2.30 [place] # (Auto) 0.38 Eos # (Auto) 0.20 Baso # (Auto) 0.02 Sodium 136 Potassium 3.7 Chloride 105 Carbon Dioxide 27 Anion Gap 4.0 BUN 10 Creatinine 0.87 Est Cr Clr Drug Dosing 149.8 Est GFR ( Amer) 120.8 Est GFR (Non-Af Amer) 104.2 BUN/Creatinine Ratio 11.4 Glucose 101 H Calcium 8.8 Total Bilirubin 0.4 AST 29 ALT 49 Alkaline Phosphatase 55 Total Protein 7.5 Albumin 4.0 Globulin 3.5 Albumin/Globulin Ratio 1.1 TSH 0.925 Urine Color Urine Appearance Urine pH Ur Specific [place] Urine Protein Urine Glucose (UA) Urine Ketones Urine Blood Urine Nitrite Urine Bilirubin Urine Urobilinogen Ur Leukocyte Esterase Nasal Screen MRSA (PCR) Salicylates 3.5 Urine Opiates Screen Ur Methadone, Qual Acetaminophen < 2 L Urine Barbiturates Ur Phencyclidine (PCP) U Amphetamin/Meth Scrn MDMA (Ecstasy) Screen U Benzodiazepines Scrn Ur Cocaine Metabolite U Marijuana (THC) Screen Ethyl Alcohol mg/dL 04/29/19 04/29/19 04/29/19 09:58 10:37 10:37 WBC RBC Hgb Hct MCV MCH MCHC RDW Std Deviation RDW Coeff of Raysa Plt Count MPV Immature Gran % (Auto) Neut % (Auto) Lymph % (Auto) [place] % (Auto) Eos % (Auto) Baso % (Auto) Immature Gran # (Auto) Neut # (Auto) Lymph # (Auto) [place] # (Auto) Eos # (Auto) Baso # (Auto) Sodium Potassium Chloride Carbon Dioxide Anion Gap BUN Creatinine Est Cr Clr Drug Dosing Est GFR ( Amer) Est GFR (Non-Af Amer) BUN/Creatinine Ratio Glucose Calcium Total Bilirubin AST ALT Alkaline Phosphatase Total Protein Albumin Globulin Albumin/Globulin Ratio TSH Urine Color Dark Yellow Urine Appearance Clear Urine pH 8.0 H Ur Specific [place] 1.021 Urine Protein Negative Urine Glucose (UA) Negative Urine Ketones Negative Urine Blood Negative Urine Nitrite Negative Urine Bilirubin Negative Urine Urobilinogen Negative Ur Leukocyte Esterase Negative Nasal Screen MRSA (PCR) Salicylates Urine Opiates Screen Neg Ur Methadone, Qual Neg Acetaminophen Urine Barbiturates Neg Ur Phencyclidine (PCP) Neg U Amphetamin/Meth Scrn Neg MDMA (Ecstasy) Screen Pos H U Benzodiazepines Scrn Neg Ur Cocaine Metabolite Neg U Marijuana (THC) Screen Pos H Ethyl Alcohol mg/dL < 3.0 04/29/19 10:41 WBC RBC Hgb Hct MCV MCH MCHC RDW Std Deviation RDW Coeff of Raysa Plt Count MPV Immature Gran % (Auto) Neut % (Auto) Lymph % (Auto) [place] % (Auto) Eos % (Auto) Baso % (Auto) Immature Gran # (Auto) Neut # (Auto) Lymph # (Auto) [place] # (Auto) Eos # (Auto) Baso # (Auto) Sodium Potassium Chloride Carbon Dioxide Anion Gap BUN Creatinine Est Cr Clr Drug Dosing Est GFR ( Amer) Est GFR (Non-Af Amer) BUN/Creatinine Ratio Glucose Calcium Total Bilirubin AST ALT Alkaline Phosphatase Total Protein Albumin Globulin Albumin/Globulin Ratio TSH Urine Color Urine Appearance Urine pH Ur Specific [place] Urine Protein Urine Glucose (UA) Urine Ketones Urine Blood Urine Nitrite Urine Bilirubin Urine Urobilinogen Ur Leukocyte Esterase Nasal Screen MRSA (PCR) Negative Salicylates Urine Opiates Screen Ur Methadone, Qual Acetaminophen Urine Barbiturates Ur Phencyclidine (PCP) U Amphetamin/Meth Scrn MDMA (Ecstasy) Screen U Benzodiazepines Scrn Ur Cocaine Metabolite U Marijuana (THC) Screen Ethyl Alcohol mg/dL Hospital Course (1) Suicidal ideation: 04/29 - Admitted to a locked inpatient behavioral health unit, on q15 minute safety checks - Encourage medication initiation/adjustments as indicated - Encourage participation in group and recreational therapies - Gather collateral information from outpatient providers - Suggest family meeting to involve outpatient supports in safety planning - Arrange appropriate aftercare 04/30 - Pt denies suicidality at this time 05/01 - Pt continues to deny suicidality; based on presentation, it is likely his suicidality is conditional (2) Mood disorder: 04/29 - Will treat preliminarily as mood disorder, NOS; differential includes: adjustment disorder with mixed anxiety and depression, dysthymic disorder, major depressive disorder, substance-induced mood disorder, and bipolar disorder - Will continue Depakote 750mg BID, as previously effective for patient's mood and reports of consistent anger and agitation - Request information from prior inpatient treatment facilities for additional psychiatric history - Coordinate aftercare and discharge plans - Encourage participation in group and recreational programming - Assist with development of healthy and effective coping strategies 04/30 - 05/01 - Continue Depakote 750mg BID, trazodone 150mg - Continue to encourage cooperation with discharge planning (3) Substance abuse: -Brief intervention was offered and accepted Intervention was greater than 5 min in length. Brief interventions include: 1. Assess Readiness to Quit, 2. Advise: Help Patient to Reduce or Abstain from Alcohol and abusable substances, 3. Agree: Set Specific, Feasible Goals, 4. Assist: Anticipate barriers, Problem-Solving Solutions. Social work to 5. Arrange: Referrals to appropriate treatment. Summary of intervention: The patient is in precontemplation stage with regards to transtheoretical model of change. The patient is advised to decrease alcohol consumption and substance abuse due to mild-altering effects and risk of interactions with prescription medications. The patient was advised of recommendations for abstinence from alcohol and other abusable substances and to attend substance abuse treatment at discharge, and will be provided with recovery materials to continue to education self on how to cope with their condition without drinking. 05/01 - Continue to discuss substance abuse treatment options, consider inpatient D&A rehab (4) Malingerin/14 - Based on situations related to presentation, demands for specific services, conditional suicidality related to needs not being met, and limited demonstration of initiative to change his situation - a malingering diagnosis will be added to the patient's chart - Pt has revealed a significant history of utilizing treatment programs to have his needs met, including correctional facilities, shelter houses, inpatient rehabs, and inpatient psychiatric units - Pt has been informed by multiple staff what services are realistic to expect to receive after an acute psychiatric admission - Continue to maintain clear boundaries with the patient regarding available services Mental Health & Subst Abuse Tx Community Health Promoter Name of Community Health Promoter: [facility] Messi Jameson Phone Number for Community Health Promoter: [phone] Date of Appointment with Community Health Promoter: 05/04/19 Time of Appointment with Community Health Promoter: 10:00 a.m. Case Management Appointment Comment: [address], [place] [address] Post Discharge Appointments Smoking Cessation Counseling Tobacco Cessation Medication Prescribed at Discharge: Offered & Pt Refused Contact Information Contact Information Comment: [facility]: [phone] (please call for nightly prison) Discharge Plan Discharge Items Patient Disposition: Home - Self-Care Reason For Visit: SI, MOOD DISORDER NOS Discharge Diagnosis: Mood disorder, NOS; substance abuse Condition on Discharge: Fair Activity: Resume your previous activity Non-emergency contact: Primary Care Provider, Psychiatrist and Therapist Call non-emergency contact if: you have any medication questions and your symptoms worsen Follow-up/Referrals: PCP,JOHN PAUL [Primary Care Provider] - Diet: Regular Addtl Attending Provider Instructions: SPECIAL CARE INSTRUCTIONS: 1. Follow through with your scheduled aftercare appointments. If unable to keep an appointment, please call to reschedule. 2. Take your medication only as prescribed. Medication should not be changed or stopped without the approval of your doctor. In the event of worsening symptoms or concerns about side effects, contact your doctor immediately. 3. Utilize new healthy coping skills, anger management skills, and stress management skills learned during your hospitalization. Journal feelings and process them with a support person. Identify stressors or situations that may result in relapse, deterioration or inappropriate behaviors and develop a plan to deal with those issues. 4. If your coping skills are ineffective and you are in crisis, contact your outpatient providers for direction. If unable to reach your providers, please call the CAN HELP LINE AT or go to the closest Emergency Room. 5. Avoid alcohol and un-prescribed drugs. 6. You have been provided with the Mental Health Advance Directives Pamphlet for your review. AFTERCARE APPOINTMENTS: * Please call your insurance company prior to your scheduled appointment to confirm your aftercare providers are covered. Take your insurance information to your appointments. WHO TO CALL AND WHEN: Medical Emergencies: For questions or emergencies related to your hospital stay, please contact the Inpatient Behavioral Health Unit at [phone]. A spar machine operator is on-call 08/02 for the Behavioral Health Unit for manuel helio At any time you feel your situation is an emergency, you may also call 911 immediately. Your Doctors Instructions noted above were prepared by provider Nyasia Granadso PA-C. Pending Studies at Discharge: Yes Studies:: Lab order has been provided to you in your discharge packet - you will need to have a Valproic Acid (Depakote) Level the morning of 05/05/19. Please complete this blood work before you take your morning dose of Depakote. Stand-Alone Forms: My [facility] Medications and DC Order Prescriptions: New divalproex 250 mg Tablet,Delayed Release (Dr/Ec) 750 mg PO BID 30 Days Qty: 180 RF: 0 trazodone 150 mg tablet 150 mg PO HS 30 Days Qty: 30 RF: 0 meloxicam 7.5 mg Tablet 7.5 mg PO BID 30 Days Qty: 60 RF: 0 Continued folic acid 1 mg Tablet 1 mg PO DAILY RF: 0 Prilosec OTC 20 mg Tablet,Delayed Release (Dr/Ec) 20 mg PO DAILY RF: 0 thiamine HCl (vitamin B1) [Vitamin B-1] 250 mg Tablet 625 mg PO DAILY RF: 0 meloxicam 7.5 mg Tablet 7.5 mg PO BID RF: 0 Discontinued divalproex 250 mg Tablet,Delayed Release (Dr/Ec) 750 mg PO BID RF: 0 benztropine 0.5 mg Tablet 0.5 mg PO BID RF: 0 trazodone 150 mg Tablet 150 mg PO HS RF: 0 Discharge Orders: Discharge Order (Routine); Ordered 05/02/19 Ordered By: Nyasia Granados Admission Data Admit Date/Time: 04/29/19 13:16 Attending Provider: Camille Wood Admit Provider: Camille Wood Primary Care Provider: PCP,NO Other Interventions: Discharge Summary Assessment (RN) Last Done: 05/02/19 12:11 PSY Interdisciplinary Discharge Planning Last Done: 05/02/19 12:11 DC Date/Time DO NOT enter until pt leaves facility: 05/02/19 13:23 Coding Level of Care Code 71603 D/C day mgmt > 30 min Diagnoses Suicidal ideation R45.851 Mood disorder F39 Substance abuse F19.10 Malingering Z76.5
[2019-05-02] MEDS ORDERED: DESTROY THIS MEDICATION SCH (12:00)
== END 2019-05-02 13:23 | disposition home or self-care (01) | DRG 885 ==
LOC: ED 09:44 → 3S 13:16